=== PATIENT | female | born 1985 | race Hispanic/Latino ===

== ENCOUNTER 2016-12-08 00:30 | Inpatient (IN) | payer OTHER ==
[~2016-12-08] VITALS: Ht 147.3 cm; Wt 81.6 kg
[2016-12-08] VITALS (46 sets, daily range): BP systolic 06–163; BP diastolic 55–90
[~2016-12-08 00:30] MED LIST: DOXYCYCL HYC100 MG PO; LORTAB 5/3255 MG PO; METHERGINE0.2 MG PO; PRE-NATAL PO
[2016-12-08 00:43] LABS: URINE BILIRUBIN - DIPSTICK NEGATIVE (NEGATIVE); URINE BLOOD DIPSTICK MODERATE (NEGATIVE); URINE CLARITY CLOUDY; URINE COLOR YELLOW; URINE GLUCOSE - DIPSTICK NEGATIVE (NEGATIVE); URINE KETONE NEGATIVE (NEGATIVE); URINE NITRITE - DIPSTICK NEGATIVE (Negative); URINE PROTEIN - DIPSTICK NEGATIVE (NEG-TRACE); URINE UROBILINOGEN - DIPSTICK 0.2 E.U./dL (0.2)
[2016-12-08 00:45] LABS: URINE LEUK ESTERASE SMALL (NEGATIVE)
[2016-12-08 00:47] LABS: BARBITURATES NEGATIVE (NEGATIVE); COCAINE NEGATIVE (NEGATIVE); METHADONE NEGATIVE (NEGATIVE); OXCYCODONE NEGATIVE (NEGATIVE); TETRAHYDROCANNABIONOL NEGATIVE (NEGATIVE); TRICYLIC ANTIDEPRESSANTS NEGATIVE (NEGATIVE)
[2016-12-08 00:52] LABS: URINE BACTERIA FEW hpf; URINE MUCUS FEW hpf (NONE-FEW); URINE SQUAMOUS EPITHELIAL CELL FEW EPI/hpf (0-FEW)
[2016-12-08 01:32] LABS: HEMATOCRIT 34.9 % (37.0-47.0); HEMOGLOBIN 12.2 g/dl (12.0-16.0); IMMATURE GRANULOCYTES 0.6 % (0.0-1.0); MEAN CELL VOLUME 93.8 fL CALC (80.0-100.0); MEAN CORPUSCULAR HGB 32.8 pG CALC (26.0-32.0); NEUT# 13.62 thou/uL (2.00-7.15); RED BLOOD COUNT 3.72 mill/uL (4.20-5.60); RED CELL DISTRI WIDTH 14.2 % (11.5-15.5)
[2016-12-08 01:53] LABS: ALBUMIN 3.4 g/dL (3.2-5.0); ALKALINE PHOSPHATASE 201 u/l (38-126); ANION GAP 13 (6-22 (CALC)); BILIRUBIN, TOTAL 0.8 mg/dL (0.0-1.4); BUN 11 mg/dL (7-17); BUN/CREATININE RATIO 26 (12-20 (CALC)); CALCIUM 9.6 mg/dL (8.4-10.2); CARBON DIOXIDE 19 mmol/l (22-30); CHLORIDE 106 mmol/l (95-108); CREATININE 0.4 mg/dL (0.5-1.0); GFR > 60 ML/MIN (>=60 (CALC)); GFR FOR AFR.AMER. > 60 ML/MIN (>=60 (CALC)); GLUCOSE 99 mg/dL (65-105); POTASSIUM 4.3 mmol/l (3.5-5.1); SGOT/AST 24 u/l (14-36); SGPT/ALT 28 u/l (9-52); SODIUM 134 mmol/l (137-146); TOTAL PROTEIN 6.6 g/dL (6.3-8.2)
[2016-12-08 21:25] LABS: HEMATOCRIT 32.5 % (37.0-47.0); IMMATURE GRANULOCYTES 0.6 % (0.0-1.0); MEAN CELL VOLUME 95.3 fL CALC (80.0-100.0); MEAN CORPUSCULAR HGB 32.3 pG CALC (26.0-32.0); MEAN CORPUSCULAR HGB CONC 33.8 g/L CALC (32.0-36.0); NEUT# 22.01 thou/uL (2.00-7.15); RED BLOOD COUNT 3.41 mill/uL (4.20-5.60); RED CELL DISTRI WIDTH 14.8 % (11.5-15.5)
[2016-12-09 00:38] VITALS: BP 118/60
[2016-12-09 04:50] VITALS: BP 108/61
[2016-12-09 08:00] VITALS: BP 100/60
[2016-12-09 18:00] VITALS: BP 129/68
[2016-12-09 23:35] VITALS: BP 126/66
[2016-12-10 08:00] VITALS: BP 132/76
[2016-12-10 15:15] VITALS: BP 122/81
[2016-12-10 20:40] VITALS: BP 118/71
[2016-12-11 04:05] VITALS: BP 116/77
[2016-12-11] MEDS ORDERED: NORCO1 TA1 PO (09:19)
== END 2016-12-11 10:05 | disposition home or self-care (01) | DRG 766 ==
LOC: OBOP 00:30 → OB 00:30 → OBOP 00:49 → OB 00:50
PROC: 10D00Z1 Extraction of Products of Conception, Low, Open Approach (ICD-10-PCS; principal; 2016-12-08)
PROC: 0UB70ZZ Excision of Bilateral Fallopian Tubes, Open Approach (ICD-10-PCS; 2016-12-08)
PROC: 10907ZC Drainage of Amniotic Fluid, Therapeutic from Products of Conception, Via Natural or Artificial Opening (ICD-10-PCS; 2016-12-08)
DX: O33.9 Maternal care for disproportion, unspecified (principal); O76 Abnormality in fetal heart rate and rhythm complicating labor and delivery; O62.2 Other uterine inertia; Z3A.40 40 weeks gestation of pregnancy; Z37.0 Single live birth
CPT/HCPCS: J2710

== ENCOUNTER 2018-08-25 10:35 | Emergency (ER) | payer SELFPAY ==
[~2018-08-25] VITALS: Ht 147.3 cm; Wt 55.0 kg
[~2018-08-25 10:35] MED LIST changes: +NORCO1 TA1 PO
[2018-08-25 11:40] LABS: HEMATOCRIT 34.9 % (37.0-47.0); HEMOGLOBIN 11.5 g/dl (12.0-16.0); IMMATURE GRANULOCYTES 0.3 % (0.0-5.0); MEAN CELL VOLUME 94.3 fL CALC (80.0-100.0); MEAN CORPUSCULAR HGB 31.1 pG CALC (26.0-32.0); NEUT# 3.31 thou/uL (2.00-7.15); RED BLOOD COUNT 3.7 mill/uL (4.20-5.60); RED CELL DISTRI WIDTH 13.5 % (11.5-15.5)
[2018-08-25 11:55] LABS: ANION GAP 10 (6-22 (CALC)); BUN 12 mg/dL (7-17); BUN/CREATININE RATIO 31 (12-20 (CALC)); CHLORIDE 107 mmol/l (95-108); CREATININE 0.4 mg/dL (0.5-1.0); GFR > 60 ML/MIN (>=60 (CALC)); GFR FOR AFR.AMER. > 60 ML/MIN (>=60 (CALC)); POTASSIUM 4.3 mmol/l (3.5-5.1); SODIUM 137 mmol/l (137-146)
[2018-08-25 12:05] LABS: CARBON DIOXIDE 24 mmol/l (22-30)
[2018-08-25] MEDS ORDERED: MIRALAX3350 N1 PO (12:23)
[2018-08-25] MEDS ORDERED: ANUCORT-HC25 M1 RE (12:24)
[2018-08-25 12:33] LABS: URINE BILIRUBIN - DIPSTICK NEGATIVE (NEGATIVE); URINE BLOOD DIPSTICK NEGATIVE (NEGATIVE); URINE COLOR YELLOW; URINE GLUCOSE - DIPSTICK NEGATIVE (NEGATIVE); URINE KETONE NEGATIVE (NEGATIVE); URINE LEUK ESTERASE NEGATIVE (NEGATIVE); URINE NITRITE - DIPSTICK NEGATIVE (Negative); URINE PROTEIN - DIPSTICK NEGATIVE (NEG-TRACE); URINE UROBILINOGEN - DIPSTICK 0.2 E.U./dL (0.2)
[2018-08-25 12:58] VITALS: BP 108/66
== END 2018-08-25 13:24 | disposition home or self-care (01) | DRG 379 ==
LOC: ED 10:35
PROVIDERS: Family Medicine
DX: K92.1 Melena (principal); K64.9 Unspecified hemorrhoids; S30.817A Abrasion of anus, initial encounter; R30.0 Dysuria; R39.15 Urgency of urination; X58.XXXA Exposure to other specified factors, initial encounter

== ENCOUNTER 2023-12-14 20:38 | Emergency (ER) | payer SELFPAY ==
[~2023-12-14] VITALS: Ht 152.4 cm; Wt 78.0 kg
[~2023-12-14 20:38] MED LIST changes: +ANUCORT-HC25 M1 RE; +BACTRIM DS1 TAB PO; +MIRALAX3350 N1 PO; +MOTRIN800 MG PO
[2023-12-14] MEDS ORDERED: CORTISPORIN OTI10 ML AS (22:04)
[2023-12-14 22:18] VITALS: BP 114/72
== END 2023-12-14 22:18 | disposition home or self-care (01) | DRG 156 ==
LOC: ED 20:38
DX: H60.92 Unspecified otitis externa, left ear (principal); E11.9 Type 2 diabetes mellitus without complications; E78.00 Pure hypercholesterolemia, unspecified